=== PATIENT | male | born 1985 | race Caucasian/White ===

== ENCOUNTER 2018-03-20 11:05 | Emergency (ER) | payer MEDICARE ==
[2018-03-20 11:33] LABS: Appearance CLEAR (CLEAR); Bilirubin NEGATIVE (NEGATIVE); Blood NEGATIVE Ery/ul (0-5); Glucose NEGATIVE (NEGATIVE); Ketones NEGATIVE (NEGATIVE); Leukocyte Esterase NEGATIVE (NEGATIVE); Nitrite NEGATIVE (NEGATIVE); Protein,Urine Dip NEGATIVE (Negative); Specific Gravity 1.015 (1.005-1.025); Urobilinogen NORMAL mg/dL (0-1)
--- NOTE | 2018-03-20 11:33 | ERPHSYRPT ---
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) Exam Limitations: no limitations Patient Subjective Stated Complaint: to er c/o suicidal ideation Triage Nursing Assessment: Pt from [facility] was upset that he was not able to use his phone so he went into street to "jump in front of a car" no cars were in street at time pt was assisted back into home and told staff he was going to then "suffocate self with a pillow" pt arrives to ER [id number] denies any suicidal ideation at this time states he is sorry for doing what he did and states "I was just mad" Physician History: Pt and his central supply tech state, he had an argument about his diet last night. He became angry today and wanted jump into traffic to kill himself. He denies any injury or complaints. He arrived with ambulance, he is calm and cooperative. Allergies/Adverse Reactions: amoxicillin [From Amoxil] Allergy (Verified 03/20/18 11:30) Penicillins Allergy (Verified 03/20/18 11:30) Home Medications: Aripiprazole [Abilify] 20 mg PO HS 03/20/18 [History] Benztropine Mesylate 2 mg PO HS 03/20/18 [History] Escitalopram Oxalate 10 mg [Lexapro 10 MG] 20 mg PO DAILY 03/20/18 [History] Loratadine 10 mg [Claritin 10 mg] 10 mg PO DAILY 03/20/18 [History] Melatonin 5 mg PO HS 03/20/18 [History] Oxcarbazepine [Trileptal] 600 mg PO BID 03/20/18 [History] clonazePAM [Clonazepam] 0.5 mg PO BID 03/20/18 [History] Hx Influenza Vaccination/Date Given: Yes - Past Medical History Pertinent Past Medical History: Yes Neurological History: Epilepsy Psycho-Social History: Bipolar, Other Other Medical History: tramatic brain injury, insomnia, ptsd - Past Surgical History Past Surgical History: Yes Gastrointestinal: Appendectomy Other Surgical History: right neck lymph node removal, 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 - Social History Smoking Status: Never smoker Drug Use: none - Review of Systems Constitutional: No Symptoms Psychological: Anxiety, Depression, Suicidal Ideations, Emotional Lability, Mood Changes All Other Systems: Reviewed and Negative - Nursing Vital Signs Nursing Vital Signs: Initial Vital Signs Temperature 98.4 F 03/20/18 11:13 Pulse Rate 106 H 03/20/18 11:13 Respiratory Rate 18 03/20/18 11:13 Blood Pressure 162/96 03/20/18 11:13 O2 Sat by Pulse Oximetry 94 L 03/20/18 11:13 Pain Scale Pain Intensity 0 - Physical Exam General Appearance: no apparent distress Eyes, Ears, Nose, Throat Exam: normal ENT inspection Neck Exam: normal inspection, non-tender, supple Respiratory Exam: normal breath sounds, lungs clear, airway intact, No chest tenderness Cardiovascular Exam: regular rate/rhythm, normal heart sounds, normal peripheral pulses, No murmur Gastrointestinal/Abdominal Exam: soft, normal bowel sounds, No tenderness Extremities Exam: normal inspection Current Suicidality: has suicide plan Neurological Exam: alert, normal mood/affect Appearance: appropriate appearance, no memory impairment Behavior/Eye Contact/Speech: alert & cooperative, good eye contact, normal speech Skin Exam: normal color, warm, dry, No rash SpO2 Interpretation: normal SpO2: 94 Oxygen Delivery: Room Air - Course Nursing assessment & vital signs reviewed: Yes EKG Interpreted by Me: RATE (94/min), NORMAL AXIS, NORMAL INTERVALS, NORMAL ST-T Ordered Tests: Active Orders 24 hr Category Date Time Status Clean Catch Urine Specimen STAT Care 03/20/18 11:10 Active EKG-ER Only STAT Care 03/20/18 11:25 Active Psychiatric Evaluation STAT Care 03/20/18 13:26 Active ACETAMINOPHEN Stat Lab 03/20/18 11:35 Completed CBC W DIFF Stat Lab 03/20/18 11:35 Completed CMP Stat Lab 03/20/18 11:35 Completed ETHYL ALCOHOL Stat Lab 03/20/18 11:35 Completed SALICYLATE Stat Lab 03/20/18 11:35 Completed UA W/RFX UR CULTURE Stat Lab 03/20/18 11:26 Completed Urine Triage Profile Stat Lab 03/20/18 11:26 Completed Lab/Rad Data: Laboratory Result Diagrams 03/20/18 11:35 03/20/18 11:35 Laboratory Results 03/20/18 03/20/18 03/20/18 Range/Units 11:35 11:35 11:26 WBC 7.9 (4.0-10.5) K/mm3 RBC 5.14 (4.1-5.6) M/mm3 Hgb 15.4 (12.5-18.0) gm/dl Hct 43.3 (42-50) % MCV 84.2 (78-100) fl MCH 30.0 (26-32) pg MCHC 35.6 (32-36) g/dl RDW 12.7 (11.5-14.0) % Plt Count 210 (150-450) K/mm3 MPV 8.8 (6-9.5) fl Gran % 61.7 (36.0-66.0) % Eos # (Auto) 0.46 (0-0.5) Absolute Lymphs (auto) 1.77 (1.0-4.6) Absolute Monos (auto) 0.72 (0.0-1.3) Lymphocytes % 22.5 L (24.0-44.0) % Monocytes % 9.1 (0.0-12.0) % Eosinophils % 5.8 H (0.00-5.0) % Basophils % 0.9 (0.0-0.4) % Absolute Granulocytes 4.85 (1.4-6.9) Basophils # 0.07 (0-0.4) Sodium 140 (137-145) mmol/L Potassium 4.1 (3.5-5.1) mmol/L Chloride 105 (98-107) mmol/L Carbon Dioxide 25 (22-30) mmol/L Anion Gap 13.7 (5-15) MEQ/L BUN 14 (9-20) mg/dL Creatinine 0.73 (0.66-1.25) mg/dL Estimated GFR > 60.0 ML/MIN Glucose 136 H (74-106) mg/dL Calcium 9.4 (8.4-10.2) mg/dL Total Bilirubin 0.30 (0.2-1.3) mg/dL AST 29 (17-59) U/L ALT 24 (0-50) U/L Alkaline Phosphatase 73 (38-126) U/L Serum Total Protein 7.2 (6.3-8.2) g/dL Albumin 4.3 (3.5-5.0) g/dL Ur Collection Type Urine Color (YELLOW) Urine Appearance (CLEAR) Urine pH (5-6) Ur Specific [place] (1.005-1.025) Urine Protein (Negative) Urine Ketones (NEGATIVE) Urine Blood (0-5) Abimael/ul Urine Nitrite (NEGATIVE) Urine Bilirubin (NEGATIVE) Urine Urobilinogen (0-1) mg/dL Ur Leukocyte Esterase (NEGATIVE) Urine Culture Reflexed (NO) Urine Glucose (NEGATIVE) mg/dL Salicylates < 1.0 L (2-20) mg/dL Urine Opiates Level NEGATIVE (NEGATIVE) Ur Methadone NEGATIVE (NEGATIVE) Acetaminophen < 10 L (10-30) ug/ml Urine Barbiturates NEGATIVE (NEGATIVE) Ur Phencyclidine (PCP) NEGATIVE (NEGATIVE) Urine Amphetamine NEGATIVE (NEGATIVE) U Benzodiazepine Level NEGATIVE (NEGATIVE) Urine Cocaine NEGATIVE (NEGATIVE) Urine Marijuana (THC) NEGATIVE (NEGATIVE) Ethyl Alcohol < 10 (0-10) mg/dL Specimen Received 03/20/18 Range/Units 11:26 WBC (4.0-10.5) K/mm3 RBC (4.1-5.6) M/mm3 Hgb (12.5-18.0) gm/dl Hct (42-50) % MCV (78-100) fl MCH (26-32) pg MCHC (32-36) g/dl RDW (11.5-14.0) % Plt Count (150-450) K/mm3 MPV (6-9.5) fl Gran % (36.0-66.0) % Eos # (Auto) (0-0.5) Absolute Lymphs (auto) (1.0-4.6) Absolute Monos (auto) (0.0-1.3) Lymphocytes % (24.0-44.0) % Monocytes % (0.0-12.0) % Eosinophils % (0.00-5.0) % Basophils % (0.0-0.4) % Absolute Granulocytes (1.4-6.9) Basophils # (0-0.4) Sodium (137-145) mmol/L Potassium (3.5-5.1) mmol/L Chloride (98-107) mmol/L Carbon Dioxide (22-30) mmol/L Anion Gap (5-15) MEQ/L BUN (9-20) mg/dL Creatinine (0.66-1.25) mg/dL Estimated GFR ML/MIN Glucose (74-106) mg/dL Calcium (8.4-10.2) mg/dL Total Bilirubin (0.2-1.3) mg/dL AST (17-59) U/L ALT (0-50) U/L Alkaline Phosphatase (38-126) U/L Serum Total Protein (6.3-8.2) g/dL Albumin (3.5-5.0) g/dL Ur Collection Type VOID Urine Color YELLOW (YELLOW) Urine Appearance CLEAR (CLEAR) Urine pH 6.0 (5-6) Ur Specific [place] 1.015 (1.005-1.025) Urine Protein NEGATIVE (Negative) Urine Ketones NEGATIVE (NEGATIVE) Urine Blood NEGATIVE (0-5) Abimael/ul Urine Nitrite NEGATIVE (NEGATIVE) Urine Bilirubin NEGATIVE (NEGATIVE) Urine Urobilinogen NORMAL (0-1) mg/dL Ur Leukocyte Esterase NEGATIVE (NEGATIVE) Urine Culture Reflexed NO (NO) Urine Glucose NEGATIVE (NEGATIVE) mg/dL Salicylates (2-20) mg/dL Urine Opiates Level (NEGATIVE) Ur Methadone (NEGATIVE) Acetaminophen (10-30) ug/ml Urine Barbiturates (NEGATIVE) Ur Phencyclidine (PCP) (NEGATIVE) Urine Amphetamine (NEGATIVE) U Benzodiazepine Level (NEGATIVE) Urine Cocaine (NEGATIVE) Urine Marijuana (THC) (NEGATIVE) Ethyl Alcohol (0-10) mg/dL Specimen Received 03/20/18 1115 - Progress Progress: unchanged Progress Note: 03/20/18 13:14 Pt has been calm, stable, reviewed all his labs, he is medically clear for Psychiatric evaluation and treatment. 03/20/18 15:20 Jose called from [facility], Dr Michela Mckeon accepted patient to be transferred there for Psychiatric care. - Departure Time of Disposition: 13:14 Departure Disposition: Transfer Clinical Impression: Suicidal behavior with attempted self-injury Condition: Stable Critical Care Time: No Referrals: IQRA MILLS [Primary Care Provider] -
[2018-03-20 11:43] LABS: BASOPHIL % 0.9 % (0.0-0.4); Basophil (Absolute #) 0.07 (0-0.4); Eosinophil % 5.8 % (0.00-5.0); Eosinophil (Absolute #) 0.46 (0-0.5); Granulocyte Absolute (ANC) 4.85 (1.4-6.9); Granulocytes % 61.7 % (36.0-66.0); Hematocrit 43.3 % (42-50); Hemoglobin 15.4 gm/dl (12.5-18.0); Lymphocyte (Absolute #) 1.77 (1.0-4.6); Lymphocytes % 22.5 % (24.0-44.0); Mean Cell Volume 84.2 fl (78-100); Mean Corpuscular Hgb Concent. 35.6 g/dl (32-36); Mean Platelet Volume 8.8 fl (6-9.5); Monocyte (Absolute #) 0.72 (0.0-1.3); Monocytes % 9.1 % (0.0-12.0); Platelet Count 210 K/mm3 (150-450); Red Blood Count 5.14 M/mm3 (4.1-5.6); Red Cell Distribution Width 12.7 % (11.5-14.0); White Blood Count 7.9 K/mm3 (4.0-10.5)
[2018-03-20 11:46] LABS: Amphetamine,Urine NEGATIVE (NEGATIVE); Barbiturate,Urine NEGATIVE (NEGATIVE); Benzodiazepine,Urine NEGATIVE (NEGATIVE); Cocaine,Urine NEGATIVE (NEGATIVE); Methadone,Urine NEGATIVE (NEGATIVE); Opiate,Urine NEGATIVE (NEGATIVE); PCP,Urine NEGATIVE (NEGATIVE); THC,Urine NEGATIVE (NEGATIVE)
[2018-03-20 12:00] LABS: ALBUMIN 4.3 g/dL (3.5-5.0); ALKALINE PHOSPHATASE 73 U/L (38-126); ANION GAP 13.7 MEQ/L (5-15); BLOOD UREA NITROGEN 14 mg/dL (9-20); CHLORIDE 105 mmol/L (98-107); Calcium 9.4 mg/dL (8.4-10.2); Carbon Dioxide 25 mmol/L (22-30); Creatinine 1 0.73 mg/dL (0.66-1.25); Glucose 136 mg/dL (74-106); Potassium 4.1 mmol/L (3.5-5.1); SGOT/AST 29 U/L (17-59); SGPT/ALT 24 U/L (0-50); SODIUM 140 mmol/L (137-145); Total Protein 7.2 g/dL (6.3-8.2)
[2018-03-20 12:03] LABS: ACETAMINOPHEN < 10 ug/ml (10-30); ETHYL ALCOHOL < 10 mg/dL (0-10); SALICYLATE < 1.0 mg/dL (2-20)
[2018-03-20 15:06] VITALS: BP 117/75; PULSE 77
[2018-03-20 15:22] VITALS: O2SAT 94
== END 2018-03-20 16:18 | disposition short-term general hospital (02) ==
LOC: ED 11:05
DX: T14.91XA Suicide attempt, initial encounter (principal); Z79.899 Other long term (current) drug therapy; F41.9 Anxiety disorder, unspecified
CPT/HCPCS: 36415; 80053; 80307; 81002; 85025; 90791; 93005; 99285; G0481; 99284; Q3014; G0480

== ENCOUNTER 2018-04-07 21:30 | Emergency (ER) | payer MEDICARE ==
[2018-04-07 22:42] VITALS: PULSE 71
--- NOTE | 2018-04-07 22:57 | ERPHSYRPT ---
- History of Present Illness Time Seen by Provider: 04/07/18 22:53 Source: patient Exam Limitations: no limitations Patient Subjective Stated Complaint: foot pain Triage Nursing Assessment: pt is ambulatory. pt is alert and oriented. pt has mental disabilities and behavioral issues. pt states that his pain is a 10/10. no sensation loss, pedal pulses equal. Physician History: The patient is a 32-year-old male with a caregiver from a long term in which the patient lives. The patient complains to me of left foot pain for 2 or 3 days. He denies trauma to the area. He says when he was about 23 he had a stress fracture in that foot. The caregiver states that he refused to take Tylenol or put ice on it. He does not discuss any other problems with me. Method of Injury: unknown Occurred: days ago (few) Quality: constant Severity of Pain-Max: mild Severity of Pain-Current: mild Lower Extremities Pain: foot: left Modifying Factors: Improves With: nothing Associated Symptoms: none Allergies/Adverse Reactions: amoxicillin [From Amoxil] Allergy (Verified 03/20/18 11:30) Penicillins Allergy (Verified 03/20/18 11:30) Home Medications: Aripiprazole [Abilify] 20 mg PO HS 03/20/18 [History] Benztropine Mesylate 2 mg PO HS 03/20/18 [History] Escitalopram Oxalate 10 mg [Lexapro 10 MG] 20 mg PO DAILY 03/20/18 [History] Loratadine 10 mg [Claritin 10 mg] 10 mg PO DAILY 03/20/18 [History] Melatonin 5 mg PO HS 03/20/18 [History] Oxcarbazepine [Trileptal] 600 mg PO BID 03/20/18 [History] clonazePAM [Clonazepam] 0.5 mg PO BID 03/20/18 [History] Hx Influenza Vaccination/Date Given: Yes Immunizations Up to Date: Yes - Review of Systems Constitutional: No Fever, No Chills Eyes: No Symptoms Ears, Nose, & Throat: No Symptoms Respiratory: No Cough, No Dyspnea Cardiac: No Chest Pain, No Edema, No Syncope Abdominal/Gastrointestinal: No Abdominal Pain, No Nausea, No Vomiting, No Diarrhea Genitourinary Symptoms: No Dysuria Musculoskeletal: Other (left foot pain) Skin: No Rash Neurological: No Dizziness, No Focal Weakness, No Sensory Changes Psychological: No Symptoms Endocrine: No Symptoms Hematologic/Lymphatic: No Symptoms Immunological/Allergic: No Symptoms All Other Systems: Reviewed and Negative - Past Medical History Pertinent Past Medical History: Yes Neurological History: Epilepsy ENT History: No Pertinent History Cardiac History: No Pertinent History Respiratory History: No Pertinent History Endocrine Medical History: No Pertinent History Musculoskeletal History: Other GI Medical History: No Pertinent History History: No Pertinent History Psycho-Social History: Bipolar, Other Male Reproductive Disorders: No Pertinent History Other Medical History: tramatic brain injury, insomnia, ptsd, left pointer finger amputation. 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 - Social History Smoking Status: Never smoker Drug Use: none - Nursing Vital Signs Nursing Vital Signs: Initial Vital Signs Temperature 98.3 F 04/07/18 21:34 Pulse Rate 73 04/07/18 21:34 Respiratory Rate 16 04/07/18 21:34 Blood Pressure 149/97 04/07/18 21:34 O2 Sat by Pulse Oximetry 94 L 04/07/18 21:34 Pain Scale Pain Intensity 10 - Physical Exam General Appearance: alert Eyes, Ears, Nose, Throat Exam: moist mucous membranes Neck Exam: non-tender, supple Cardiovascular/Respiratory Exam: chest non-tender, normal breath sounds, regular rate/rhythm, no respiratory distress Gastrointestinal/Abdominal Exam: non-tender, guarding Back Exam: normal inspection, No vertebral tenderness Hips Exam: bilateral: normal inspection Legs Exam: bilateral leg: normal inspection Knees Exam: bilateral knee: normal inspection Ankle Exam: bilateral ankle: normal inspection Foot Exam: right foot: normal inspection, left foot: soft tissue tenderness ( mid foot) Neuro/Tendon Exam: normal sensation, normal motor functions Mental Status Exam: alert, oriented x 3, cooperative Skin Exam: normal color, warm, dry SpO2 Interpretation: normal SpO2: 92 Oxygen Delivery: Room Air - Radiology Exams Left Foot X-ray Interpretation: Interpreted by me, Negative Ordered Tests: Active Orders 24 hr Category Date Time Status FOOT (MINIMUM 3 VIEWS) Stat Exams 04/07/18 22:58 Ordered - Departure Time of Disposition: 23:21 Departure Disposition: Home Clinical Impression: Foot pain Condition: Stable Critical Care Time: No Referrals: IQRA MILLS [Primary Care Provider] - Additional Instructions: You have left foot pain. The x-ray was completely normal. You were given Toradol 60 mg by IM in the ER. Take Tylenol and ibuprofen as needed tomorrow. Follow-up next week if the foot is still hurting you.
[2018-04-07] MEDS ORDERED: TORAdol 30 mg Injection IM ONE (23:21)
[2018-04-07] MEDS ORDERED: TORAdol 30 mg Injection ONE (23:35)
[2018-04-07 23:43] VITALS: BP 131/70; O2SAT 90
--- NOTE | 2018-04-08 08:50 | XRAY ---
Indication: Foot pain. Comparison: None 3 nonweightbearing views of the left foot demonstrates tiny heel spur. No other bony, articular, or soft tissue abnormalities.
== END 2018-04-07 23:48 | disposition home or self-care (01) ==
LOC: ED 21:30
DX: M79.672 Pain in left foot (principal); Z79.899 Other long term (current) drug therapy
CPT/HCPCS: 73630; 96372; 99282; 99284; J1885

== ENCOUNTER 2018-06-07 21:30 | Emergency (ER) | payer MEDICARE ==
--- NOTE | 2018-06-07 22:04 | ERPHSYRPT ---
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 No laceration, denies LOC or any other injuries. No sx other than pain. no distress at this time. pt is from longterm. Triage Nursing Assessment: see above Physician History: The patient is a 32-year-old male with his caregiver from the longterm complaining that it came minutes before he arrived here, he opened a cabinet door and a metal shelf fell and hit him on the top of the head. He did not lose consciousness. He did not get cut. His head is slightly tender. It is the policy of the caregivers organization to have him evaluated for any accident. Occurred: just prior to arrival Severity: mild Head Injury Location: parietal Method of Injury: direct blow Loss of Consciousness: no loss of consciousness Associated Symptoms: denies symptoms Allergies/Adverse Reactions: amoxicillin [From Amoxil] Allergy (Verified 06/07/18 21:49) Penicillins Allergy (Verified 06/07/18 21:49) Home Medications: Aripiprazole [Abilify] 20 mg PO HS 03/20/18 [History] Benztropine Mesylate 2 mg PO HS 03/20/18 [History] Escitalopram Oxalate 10 mg [Lexapro 10 MG] 20 mg PO DAILY 03/20/18 [History] Loratadine 10 mg [Claritin 10 mg] 10 mg PO DAILY 03/20/18 [History] Melatonin 5 mg PO HS 03/20/18 [History] Oxcarbazepine [Trileptal] 600 mg PO BID 03/20/18 [History] clonazePAM [Clonazepam] 0.5 mg PO BID 03/20/18 [History] Hx Influenza Vaccination/Date Given: Yes - Review of Systems Constitutional: No Fever, No Chills Eyes: No Symptoms Ears, Nose, & Throat: No Symptoms Respiratory: No Cough, No Dyspnea Cardiac: No Chest Pain, No Edema, No Syncope Abdominal/Gastrointestinal: No Abdominal Pain, No Nausea, No Vomiting, No Diarrhea Genitourinary Symptoms: No Dysuria Musculoskeletal: No Back Pain, No Neck Pain Skin: No Rash Neurological: Headache Psychological: No Symptoms Endocrine: No Symptoms Hematologic/Lymphatic: No Symptoms Immunological/Allergic: No Symptoms All Other Systems: Reviewed and Negative - Past Medical History Pertinent Past Medical History: Yes Neurological History: Epilepsy ENT History: No Pertinent History Cardiac History: No Pertinent History Respiratory History: No Pertinent History Endocrine Medical History: No Pertinent History Musculoskeletal History: Other GI Medical History: No Pertinent History History: No Pertinent History Psycho-Social History: Bipolar, Other Male Reproductive Disorders: No Pertinent History Other Medical History: tramatic brain injury, insomnia, ptsd, left pointer finger amputation. 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 - Social History Smoking Status: Former smoker Exposure to second hand smoke: No Drug Use: none Patient Lives Alone: No - Nursing Vital Signs Nursing Vital Signs: Initial Vital Signs Temperature 98.7 F 06/07/18 21:40 Pulse Rate 87 06/07/18 21:40 Respiratory Rate 18 06/07/18 21:40 Blood Pressure 140/88 06/07/18 21:40 O2 Sat by Pulse Oximetry 97 06/07/18 21:40 Pain Scale Pain Intensity 2 - [place] Coma Score Best Eye Response ([place]): (4) open spontaneously Best Verbal Response ([place]): (5) oriented Best Motor Response ([place]): (6) obeys commands [place] Total: 15 - Physical Exam General Appearance: no apparent distress, alert Head Injury: no evidence of injury Eye Exam: bilateral eye: normal inspection ENT Exam: airway nml Neck Exam: supple Cardiovascular/Respiratory Exam: chest non-tender, normal breath sounds, regular rate/rhythm Gastrointestinal/Abdominal Exam: soft, non tender, no distention Rectal Exam: not done Back Exam: normal inspection, No vertebral tenderness Extremity Exam: non-tender, normal range of motion, normal inspection Mental Status Exam: alert, oriented x 3, 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 Take Tylenol as needed. You have been released to return to work tomorrow.
[2018-06-07 22:58] VITALS: BP 140/88; PULSE 87; O2SAT 97
== END 2018-06-07 22:07 | disposition home or self-care (01) ==
LOC: ED 21:30
DX: S00.03XA Contusion of scalp, initial encounter (principal); W20.8XXA Other cause of strike by thrown, projected or falling object, initial encounter; Y92.538 Other ambulatory health services establishments as the place of occurrence of the external cause; G40.909 Epilepsy, unspecified, not intractable, without status epilepticus; F31.9 Bipolar disorder, unspecified; F43.10 Post-traumatic stress disorder, unspecified
CPT/HCPCS: 99283

== ENCOUNTER 2018-07-13 21:47 | Emergency (ER) | payer MEDICARE ==
[2018-07-13 22:40] VITALS: BP 115/81; PULSE 74; O2SAT 93
[2018-07-13] MEDS ORDERED: Adacel Vial IM ONE ×2 (22:41→22:55)
--- NOTE | 2018-07-13 22:47 | ERPHSYRPT ---
- History of Present Illness Time Seen by Provider: 07/13/18 22:36 Source: patient Exam Limitations: no limitations Patient Subjective Stated Complaint: stepped on thumb tack, needs tetanus shot Triage Nursing Assessment: Pt stepped on a thumb tack today and is here for a tetanus shot Physician History: This is a 32-year-old white male [facility]. Patient has a history of bipolar TBI insomnia PTSD. Patient arrives with complaint of stepped on a thumbtack at 9:00 this evening right foot overlying the right first metatarsophalangeal joint. Patient states she has no pain at this time. Patient apparently was sent by referring nurse for tetanus shot. Past medical history includes bipolar, TBI, insomnia, PTSD, left pointer finger amputation. Past surgical history includes appendectomy, right neck lymph node removed, left second digit amputation.. Method of Injury: other (stepped on at tack) Occurred: just prior to arrival Quality: other (Pain resolved) Severity of Pain-Max: moderate Severity of Pain-Current: none Lower Extremities Pain: foot: right Modifying Factors: Improves With: nothing Associated Symptoms: none Allergies/Adverse Reactions: amoxicillin [From Amoxil] Allergy (Verified 07/13/18 22:32) Penicillins Allergy (Verified 07/13/18 22:32) Home Medications: Aripiprazole [Abilify] 15 mg PO HS 03/20/18 [History] Benztropine Mesylate 2 mg PO HS 03/20/18 [History] Escitalopram Oxalate 10 mg [Lexapro 10 MG] 20 mg PO DAILY 03/20/18 [History] Loratadine 10 mg [Claritin 10 mg] 10 mg PO DAILY 03/20/18 [History] Melatonin 5 mg PO HS 03/20/18 [History] Oxcarbazepine [Trileptal] 600 mg PO BID 03/20/18 [History] clonazePAM [Clonazepam] 0.5 mg PO BID 03/20/18 [History] Hx Influenza Vaccination/Date Given: Yes - Review of Systems Constitutional: No Fever, No Chills Eyes: No Symptoms Ears, Nose, & Throat: No Symptoms Respiratory: No Cough, No Dyspnea Cardiac: No Chest Pain, No Edema, No Syncope Abdominal/Gastrointestinal: No Abdominal Pain, No Nausea, No Vomiting, No Diarrhea Genitourinary Symptoms: No Dysuria Musculoskeletal: Other (Pain plantar surface right foot) Skin: Other (Puncture wound right foot plantar surface) Neurological: No Dizziness, No Focal Weakness, No Sensory Changes Psychological: No Symptoms Endocrine: No Symptoms All Other Systems: Reviewed and Negative - Past Medical History Pertinent Past Medical History: Yes Neurological History: Epilepsy ENT History: No Pertinent History Cardiac History: No Pertinent History Respiratory History: No Pertinent History Endocrine Medical History: No Pertinent History Musculoskeletal History: Other GI Medical History: No Pertinent History History: No Pertinent History Psycho-Social History: Bipolar, Other Male Reproductive Disorders: No Pertinent History Other Medical History: tramatic brain injury, insomnia, ptsd, left pointer finger amputation. 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 - Social History Smoking Status: Former smoker Exposure to second hand smoke: No Drug Use: none Patient Lives Alone: No - Nursing Vital Signs Nursing Vital Signs: Initial Vital Signs Temperature 98.2 F 07/13/18 22:28 Pulse Rate 74 07/13/18 22:28 Blood Pressure 115/81 07/13/18 22:28 O2 Sat by Pulse Oximetry 93 L 07/13/18 22:28 Pain Scale Pain Intensity 0 - Physical Exam General Appearance: alert Eyes, Ears, Nose, Throat Exam: moist mucous membranes Neck Exam: non-tender, supple Cardiovascular/Respiratory Exam: chest non-tender, normal breath sounds, regular rate/rhythm, no respiratory distress Gastrointestinal/Abdominal Exam: non-tender, guarding Hips Exam: bilateral: non-tender, normal inspection, normal range of motion, no evidence of injury Legs Exam: bilateral leg: non-tender, normal inspection, normal range of motion , no evidence of injury Knees Exam: bilateral knee: non-tender, normal inspection, normal range of motion, no evidence of injury Ankle Exam: bilateral ankle: non-tender, normal inspection, normal range of motion, no evidence of injury Foot Exam: right foot: other (Barely visible puncture wound plantar surface right foot overlying first MT P joint), left foot: no evidence of injury, bilateral foot: non-tender, normal inspection, normal range of motion Neuro/Tendon Exam: normal sensation, normal motor functions Mental Status Exam: alert, oriented x 3, cooperative Skin Exam: normal color, warm, dry SpO2 Interpretation: normal (93%) SpO2: 93 Oxygen Delivery: Room Air - Course Nursing assessment & vital signs reviewed: Yes Ordered Tests: Active Orders 24 hr Category Date Time Status Wound Care STAT Care 07/13/18 22:41 Active Medication Summary Discontinued Medications Generic Name Dose Route Start Last Admin Trade Name Freq PRN Reason Stop Dose Admin Diphtheria/Tetanus/Acell Pertussis 0.5 ml 07/13/18 22:41 Adacel Vial IM 07/13/18 22:42 .ONCE ONE - Progress Progress: improved Progress Note: 07/13/18 22:46 This is a 32-year-old male resident of [facility]. Brought by one of the staff with complaints of a puncture wound of the patient' s right foot after stepping on a thumbtack. Apparently the nurse that was contacted by [facility] recommended coming into the emergency room and getting a tetanus shot. Patient is in no acute distress he has a barely visible puncture wound on the right foot plantar surface overlying the right MTP joint. He is in no pain. Will have nurse clean the area give patient DTaP injection. - Departure Time of Disposition: 22:47 Departure Disposition: Home Clinical Impression: Puncture wound of right foot Qualifiers: Encounter type: initial encounter Qualified Code(s): S91.331A - Puncture wound without foreign body, right foot, initial encounter Condition: Fair Critical Care Time: No Referrals: IQRA MILLS [Primary Care Provider] - Additional Instructions: Return home. Follow-up with your family doctor problems. Return for acute distress or for severe symptoms.
== END 2018-07-13 23:16 | disposition home or self-care (01) ==
LOC: ED 21:47
DX: S91.331A Puncture wound without foreign body, right foot, initial encounter (principal); W22.8XXA Striking against or struck by other objects, initial encounter; Y92.009 Unspecified place in unspecified non-institutional (private) residence as the place of occurrence of the external cause; Z79.899 Other long term (current) drug therapy
CPT/HCPCS: 90471; 90715; 96372; 99284

== ENCOUNTER 2019-04-09 21:24 | Emergency (ER) | payer MEDICARE ==
--- NOTE | 2019-04-09 22:50 | ERPHSYRPT ---
- History of Present Illness Time Seen by Provider: 04/09/19 22:42 Source: patient Exam Limitations: no limitations Patient Subjective Stated Complaint: Behavioral problems/suicidal ideation Triage Nursing Assessment: Patient brought into ED per [facility] staff for behavioral problems and suicidal ideation. Patient alert and oriented X 3. patient calm and cooperative. Patient states he does have a plan, which would be to choke himself. Patient states he did slap the side of his face with an open hand and punch himself with a closed fist in the forehead. Patient resides in a half-way and states she doesn't like it there and feels homicidal also. patient states he would want to hurt one person named "Luis Carlos" in the house. Patient also states his psych doctor is Dr. Moeller. Patient has hx of TBI unknown date. Physician History: 33-year-old white male who [facility] at [facility] brought here with complaint of suicidal and homicidal ideation. Patient states he is not happy with his and he wishes to kill himself he states he would choke himself with possible. He also told the nurse that he wishes to harm another individual at the [facility]. Past medical history includes traumatic brain injury, insomnia, posttraumatic stress disorder, bipolar, left index finger amputation Past surgical history includes appendectomy right neck lymph node removed Social history former smoker Timing/Duration: other (will not specify for how long) Severity: moderate Modifying Factors: Improves With: nothing Associated Symptoms: No nausea, No vomiting, No abdominal pain, No shortness of breath, No heartburn, No diaphoresis, No cough, No chills, No chest pain, No fever, No headaches, No loss of appetite, No malaise, No rash, No syncope, No seizure, No weakness Allergies/Adverse Reactions: amoxicillin [From Amoxil] Allergy (Verified 04/09/19 22:01) Penicillins Allergy (Verified 04/09/19 22:01) Home Medications: Benztropine Mesylate 1 mg PO HS 03/20/18 [History] Escitalopram Oxalate 10 mg [Lexapro 10 MG] 20 mg PO DAILY 03/20/18 [History] clonazePAM [Clonazepam] 0.5 mg PO BID 03/20/18 [History] Divalproex Sodium 500 mg PO BID 04/09/19 [History] Divalproex Sodium [Depakote] 250 mg PO BID 04/09/19 [History] Hx Influenza Vaccination/Date Given: Yes Hx Pneumococcal Vaccination/Date Given: No Immunizations Up to Date: Yes - Review of Systems Constitutional: No Fever, No Chills Eyes: No Symptoms Ears, Nose, & Throat: No Symptoms Respiratory: No Cough, No Dyspnea Cardiac: No Chest Pain, No Edema, No Syncope Abdominal/Gastrointestinal: No Abdominal Pain, No Nausea, No Vomiting, No Diarrhea Genitourinary Symptoms: No Dysuria Musculoskeletal: No Back Pain, No Neck Pain Skin: No Rash Neurological: No Dizziness, No Focal Weakness, No Sensory Changes Psychological: Suicidal Ideations, Homicidal Ideations Endocrine: No Symptoms All Other Systems: Reviewed and Negative - Past Medical History Pertinent Past Medical History: Yes Neurological History: Epilepsy ENT History: No Pertinent History Cardiac History: No Pertinent History Respiratory History: No Pertinent History Endocrine Medical History: No Pertinent History Musculoskeletal History: Other GI Medical History: No Pertinent History History: No Pertinent History Psycho-Social History: Bipolar, Other Male Reproductive Disorders: No Pertinent History Other Medical History: tramatic brain injury, insomnia, ptsd, left pointer finger amputation. 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 - Social History Smoking Status: Never smoker Exposure to second hand smoke: No Drug Use: none Patient Lives Alone: No (patient in half-way) - Nursing Vital Signs Nursing Vital Signs: Initial Vital Signs Temperature 98.9 F 04/09/19 22:03 Pulse Rate 105 H 04/09/19 22:03 Respiratory Rate 18 04/09/19 22:03 Blood Pressure 141/81 04/09/19 22:03 O2 Sat by Pulse Oximetry 94 L 04/09/19 22:03 Pain Scale Pain Intensity 0 - Physical Exam General Appearance: no apparent distress, alert Eye Exam: PERRL/EOMI, eyes nml inspection Ears, Nose, Throat Exam: normal ENT inspection, TMs normal, pharynx normal, moist mucous membranes Neck Exam: normal inspection, non-tender, supple, full range of motion Respiratory Exam: normal breath sounds, lungs clear, No respiratory distress Cardiovascular Exam: regular rate/rhythm, normal heart sounds, normal peripheral pulses, capillary refill <2 sec Gastrointestinal/Abdomen Exam: soft, normal bowel sounds, No tenderness, No mass Back Exam: normal inspection, normal range of motion, No CVA tenderness, No vertebral tenderness Extremity Exam: normal inspection Neurologic Exam: alert, oriented x 3, cooperative, 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, normal mood/affect, nml cerebellar function, nml station & gait, sensation nml, No motor deficits Skin Exam: normal color, warm, dry, No rash Lymphatic Exam: No adenopathy SpO2 Interpretation: normal (94%) SpO2: 94 - Course Nursing assessment & vital signs reviewed: Yes EKG Interpreted by Me: RATE (98 bpm), Sinus Rhythm, NORMAL AXIS, Other (EKG: Sinus rhythm, 98 beats per minute, normal axis, no acute ST or T wave changes, normal EKG) Ordered Tests: Active Orders 24 hr Category Date Time Status EKG-ER Only STAT Care 04/09/19 22:40 Active ACETAMINOPHEN Stat Lab 04/09/19 22:53 Completed CBC W DIFF Stat Lab 04/09/19 22:53 Completed CMP Stat Lab 04/09/19 22:53 Completed ETHYL ALCOHOL Stat Lab 04/09/19 22:53 Completed SALICYLATE Stat Lab 04/09/19 22:53 Completed UA W/RFX UR CULTURE Stat Lab 04/09/19 22:53 Completed Urine Triage Profile Stat Lab 04/09/19 22:53 Completed Lab/Rad Data: Laboratory Result Diagrams 04/09/19 22:53 04/09/19 22:53 Laboratory Results 04/09/19 04/09/19 04/09/19 Range/Units 22:53 22:53 22:53 WBC (4.0-10.5) K/mm3 RBC (4.1-5.6) M/mm3 Hgb (12.5-18.0) gm/dl Hct (42-50) % MCV (78-100) fl MCH (26-32) pg MCHC (32-36) g/dl RDW (11.5-14.0) % Plt Count (150-450) K/mm3 MPV (6-9.5) fl Gran % (36.0-66.0) % Eos # (Auto) (0-0.5) Absolute Lymphs (auto) (1.0-4.6) Absolute Monos (auto) (0.0-1.3) Lymphocytes % (24.0-44.0) % Monocytes % (0.0-12.0) % Eosinophils % (0.00-5.0) % Basophils % (0.0-0.4) % Absolute Granulocytes (1.4-6.9) Basophils # (0-0.4) Sodium (137-145) mmol/L Potassium (3.5-5.1) mmol/L Chloride (98-107) mmol/L Carbon Dioxide (22-30) mmol/L Anion Gap (5-15) MEQ/L BUN (9-20) mg/dL Creatinine (0.66-1.25) mg/dL Estimated GFR ML/MIN Glucose (74-106) mg/dL Calcium (8.4-10.2) mg/dL Total Bilirubin (0.2-1.3) mg/dL AST (17-59) U/L ALT (0-50) U/L Alkaline Phosphatase (38-126) U/L Serum Total Protein (6.3-8.2) g/dL Albumin (3.5-5.0) g/dL Urine Color YELLOW (YELLOW) Urine Appearance CLEAR (CLEAR) Urine pH 7.0 (5-6) Ur Specific [place] 1.016 (1.005-1.025) Urine Protein NEGATIVE (Negative) Urine Ketones TRACE (NEGATIVE) Urine Blood NEGATIVE (0-5) Abimael/ul Urine Nitrite NEGATIVE (NEGATIVE) Urine Bilirubin NEGATIVE (NEGATIVE) Urine Urobilinogen NEGATIVE (0-1) mg/dL Ur Leukocyte Esterase NEGATIVE (NEGATIVE) Urine WBC (Auto) NONE (0-5) /HPF Urine RBC (Auto) NONE (0-2) /HPF U Epithel Cells (Auto) NONE (FEW) /HPF Urine Bacteria (Auto) NONE (NEGATIVE) /HPF Urine Culture Reflexed NO (NO) Urine Glucose NEGATIVE (NEGATIVE) mg/dL Salicylates (2-20) mg/dL Urine Opiates Level NEGATIVE (NEGATIVE) Ur Methadone NEGATIVE (NEGATIVE) Acetaminophen (10-30) ug/ml Urine Barbiturates NEGATIVE (NEGATIVE) Valproic Acid 86.9 (50-100) ug/mL Ur Phencyclidine (PCP) NEGATIVE (NEGATIVE) Urine Amphetamine NEGATIVE (NEGATIVE) U Benzodiazepine Level NEGATIVE (NEGATIVE) Urine Cocaine NEGATIVE (NEGATIVE) Urine Marijuana (THC) NEGATIVE (NEGATIVE) Ethyl Alcohol (0-10) mg/dL 04/09/19 04/09/19 Range/Units 22:53 22:53 WBC 7.9 (4.0-10.5) K/mm3 RBC 4.88 (4.1-5.6) M/mm3 Hgb 14.4 (12.5-18.0) gm/dl Hct 42.2 (42-50) % MCV 86.5 (78-100) fl MCH 29.5 (26-32) pg MCHC 34.1 (32-36) g/dl RDW 13.5 (11.5-14.0) % Plt Count 168 (150-450) K/mm3 MPV 9.7 H (6-9.5) fl Gran % 56.5 (36.0-66.0) % Eos # (Auto) 0.27 (0-0.5) Absolute Lymphs (auto) 2.28 (1.0-4.6) Absolute Monos (auto) 0.87 (0.0-1.3) Lymphocytes % 28.8 (24.0-44.0) % Monocytes % 11.0 (0.0-12.0) % Eosinophils % 3.4 (0.00-5.0) % Basophils % 0.3 (0.0-0.4) % Absolute Granulocytes 4.48 (1.4-6.9) Basophils # 0.02 (0-0.4) Sodium 144 (137-145) mmol/L Potassium 4.0 (3.5-5.1) mmol/L Chloride 108 H (98-107) mmol/L Carbon Dioxide 26 (22-30) mmol/L Anion Gap 14.1 (5-15) MEQ/L BUN 14 (9-20) mg/dL Creatinine 0.85 (0.66-1.25) mg/dL Estimated GFR > 60.0 ML/MIN Glucose 94 (74-106) mg/dL Calcium 9.5 (8.4-10.2) mg/dL Total Bilirubin 0.30 (0.2-1.3) mg/dL AST 36 (17-59) U/L ALT 46 (0-50) U/L Alkaline Phosphatase 51 (38-126) U/L Serum Total Protein 6.9 (6.3-8.2) g/dL Albumin 3.9 (3.5-5.0) g/dL Urine Color (YELLOW) Urine Appearance (CLEAR) Urine pH (5-6) Ur Specific [place] (1.005-1.025) Urine Protein (Negative) Urine Ketones (NEGATIVE) Urine Blood (0-5) Abimael/ul Urine Nitrite (NEGATIVE) Urine Bilirubin (NEGATIVE) Urine Urobilinogen (0-1) mg/dL Ur Leukocyte Esterase (NEGATIVE) Urine WBC (Auto) (0-5) /HPF Urine RBC (Auto) (0-2) /HPF U Epithel Cells (Auto) (FEW) /HPF Urine Bacteria (Auto) (NEGATIVE) /HPF Urine Culture Reflexed (NO) Urine Glucose (NEGATIVE) mg/dL Salicylates < 1.0 L (2-20) mg/dL Urine Opiates Level (NEGATIVE) Ur Methadone (NEGATIVE) Acetaminophen < 10 L (10-30) ug/ml Urine Barbiturates (NEGATIVE) Valproic Acid (50-100) ug/mL Ur Phencyclidine (PCP) (NEGATIVE) Urine Amphetamine (NEGATIVE) U Benzodiazepine Level (NEGATIVE) Urine Cocaine (NEGATIVE) Urine Marijuana (THC) (NEGATIVE) Ethyl Alcohol < 10 (0-10) mg/dL - Progress Progress: improved Progress Note: 04/10/19 04:24 Patient's labs essentially normal. Patient accepted for transfer to [facility]. - Departure Departure Disposition: Transfer ([facility]) Clinical Impression: Suicidal ideation Condition: Fair Critical Care Time: No Referrals: IQRA MILLS [Primary Care Provider] -
[2019-04-09 22:55] LABS: BASOPHIL % 0.3 % (0.0-0.4); Basophil (Absolute #) 0.02 (0-0.4); Eosinophil % 3.4 % (0.00-5.0); Eosinophil (Absolute #) 0.27 (0-0.5); Granulocyte Absolute (ANC) 4.48 (1.4-6.9); Granulocytes % 56.5 % (36.0-66.0); Hematocrit 42.2 % (42-50); Hemoglobin 14.4 gm/dl (12.5-18.0); Lymphocyte (Absolute #) 2.28 (1.0-4.6); Lymphocytes % 28.8 % (24.0-44.0); Mean Cell Volume 86.5 fl (78-100); Mean Corpuscular Hemoglobin 29.5 pg (26-32); Mean Corpuscular Hgb Concent. 34.1 g/dl (32-36); Mean Platelet Volume 9.7 fl (6-9.5); Monocyte (Absolute #) 0.87 (0.0-1.3); Platelet Count 168 K/mm3 (150-450); Red Blood Count 4.88 M/mm3 (4.1-5.6); Red Cell Distribution Width 13.5 % (11.5-14.0); White Blood Count 7.9 K/mm3 (4.0-10.5)
[2019-04-09 23:07] LABS: ALBUMIN 3.9 g/dL (3.5-5.0); ALKALINE PHOSPHATASE 51 U/L (38-126); ANION GAP 14.1 MEQ/L (5-15); BLOOD UREA NITROGEN 14 mg/dL (9-20); CHLORIDE 108 mmol/L (98-107); Calcium 9.5 mg/dL (8.4-10.2); Carbon Dioxide 26 mmol/L (22-30); Creatinine 1 0.85 mg/dL (0.66-1.25); Glucose 94 mg/dL (74-106); SGOT/AST 36 U/L (17-59); SGPT/ALT 46 U/L (0-50); SODIUM 144 mmol/L (137-145); Total Protein 6.9 g/dL (6.3-8.2)
[2019-04-09 23:08] LABS: ACETAMINOPHEN < 10 ug/ml (10-30); ETHYL ALCOHOL < 10 mg/dL (0-10); SALICYLATE < 1.0 mg/dL (2-20)
[2019-04-09 23:09] LABS: Appearance CLEAR (CLEAR); Bilirubin NEGATIVE (NEGATIVE); Blood NEGATIVE Ery/ul (0-5); Glucose NEGATIVE (NEGATIVE); Ketones TRACE (NEGATIVE); Leukocyte Esterase NEGATIVE (NEGATIVE); Nitrite NEGATIVE (NEGATIVE); Protein,Urine Dip NEGATIVE (Negative); Specific Gravity 1.016 (1.005-1.025); Urobilinogen NEGATIVE mg/dL (0-1)
[2019-04-09 23:20] LABS: Amphetamine,Urine NEGATIVE (NEGATIVE); Barbiturate,Urine NEGATIVE (NEGATIVE); Benzodiazepine,Urine NEGATIVE (NEGATIVE); Cocaine,Urine NEGATIVE (NEGATIVE); Methadone,Urine NEGATIVE (NEGATIVE); Opiate,Urine NEGATIVE (NEGATIVE); PCP,Urine NEGATIVE (NEGATIVE); THC,Urine NEGATIVE (NEGATIVE)
[2019-04-10 04:34] VITALS: BP 137/85; PULSE 96; O2SAT 96
== END 2019-04-10 04:30 | disposition short-term general hospital (02) ==
LOC: ED 21:24
DX: R45.851 Suicidal ideations (principal); Z79.899 Other long term (current) drug therapy
CPT/HCPCS: 36415; 80053; 80164; 80307; 81001; 85025; 93005; 99285; G0480; G0481

== ENCOUNTER 2020-05-28 07:41 | Emergency (ER) | payer MEDICARE ==
--- NOTE | 2020-05-28 08:18 | ERPHSYRPT ---
- History of Present Illness Time Seen by Provider: 05/28/20 08:00 Historian: patient, other Exam Limitations: no limitations Patient Subjective Stated Complaint: PT states "My belly hurts.". Pt caregiver states "His belly started to hurt on wednesday and he keeps holding his left belly." Triage Nursing Assessment: PT presented alert and oriented X 3, skin pwd Pt ambulates with an upright steady gait. Pt stating over and over again that his abdomen hurts. Pt abdomen is soft, tender in the upper and lower left quadrant. Physician History: 34 years old male with history of bipolar disorder, anxiety, depression, PTSD r esident of assisted living presented in the ER with caregiver for left side abdominal pain for the last 2 days with progressive worsening. Patient reports intermittent moderate to severe intensity, sharp in nature, nonradiating without any known aggravating relieving factors. Patient thinks she might be constipated and has taken milk of mag yesterday with a small bowel movement with partial relief but this morning pain got worse again. No associated nausea vomiting or diarrhea. No fever or chills reported. Timing/Duration: day(s) (2), intermittent, sudden, worse Activities at Onset: rest Quality: sharpness Abdominal Pain Onset Location: LUQ, LLQ, flank Pain Radiation: no radiation Severity of Pain-Max: moderate Severity of Pain-Current: severe Modifying Factors: Improves With: nothing Associated Symptoms: denies symptoms Previous symptoms: no prior history Allergies/Adverse Reactions: amoxicillin [From Amoxil] Allergy (Verified 04/09/19 22:01) Penicillins Allergy (Verified 04/09/19 22:01) Home Medications: Escitalopram Oxalate 10 mg [Lexapro 10 MG] 20 mg PO DAILY 03/20/18 [History] clonazePAM [Clonazepam] 0.5 mg PO BID 03/20/18 [History] Divalproex Sodium [Depakote] 500 mg PO BID 04/09/19 [History] Fluticasone Propionate [Flovent Diskus] 50 mcg IH BID 05/28/20 [History] Loratadine 10 mg PO DAILY 05/28/20 [History] cloZAPine [Clozapine] 200 mg PO BID 05/28/20 [History] Hx Tetanus, Diphtheria Vaccination/Date Given: No Hx Influenza Vaccination/Date Given: Yes Hx Pneumococcal Vaccination/Date Given: No Immunizations Up to Date: Yes Travel Risk - International Travel Have you traveled outside of the country in past 3 weeks: No - Coronavirus Screening Are you exhibiting any of the following symptoms?: No Close contact with a COVID-19 positive Pt in past 14-21 Days: No - Review of Systems Constitutional: No Symptoms Eyes: No Symptoms Ears, Nose, & Throat: No Symptoms Respiratory: No Symptoms Cardiac: No Symptoms Abdominal/Gastrointestinal: Abdominal Pain, Constipation Genitourinary Symptoms: No Symptoms Musculoskeletal: No Symptoms Skin: No Symptoms Neurological: No Symptoms Psychological: Anxiety, Depression, No Suicidal Ideations, No Homicidal Ideations Endocrine: No Symptoms Hematologic/Lymphatic: No Symptoms Immunological/Allergic: No Symptoms - Past Medical History Pertinent Past Medical History: Yes Neurological History: Epilepsy ENT History: No Pertinent History Cardiac History: No Pertinent History Respiratory History: No Pertinent History Endocrine Medical History: No Pertinent History Musculoskeletal History: Other GI Medical History: No Pertinent History History: No Pertinent History Psycho-Social History: Bipolar, Other Male Reproductive Disorders: No Pertinent History Other Medical History: tramatic brain injury, insomnia, ptsd, left pointer finger amputation. 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 - Social History Smoking Status: Former smoker Exposure to second hand smoke: Yes Drug Use: none Patient Lives Alone: No - Nursing Vital Signs Nursing Vital Signs: Initial Vital Signs Temperature 97.8 F 05/28/20 07:49 Pulse Rate 110 H 05/28/20 07:49 Respiratory Rate 20 05/28/20 07:49 Blood Pressure 151/102 05/28/20 07:49 O2 Sat by Pulse Oximetry 96 05/28/20 07:49 Pain Scale Pain Intensity 10 - Physical Exam General Appearance: no apparent distress, alert Eye Exam: eyes nml inspection Ears, Nose, Throat Exam: normal ENT inspection, pharynx normal Neck Exam: normal inspection, supple, full range of motion Respiratory Exam: normal breath sounds, lungs clear Cardiovascular Exam: normal heart sounds, tachycardia, capillary refill <2 sec Gastrointestinal/Abdomen Exam: soft, tenderness (Left abdomen), No distention Back Exam: normal inspection, normal range of motion Extremity Exam: normal inspection Neurologic Exam: alert, oriented x 3, cooperative Skin Exam: normal color SpO2 Interpretation: normal SpO2: 96 O2 Delivery: Room Air - Course Nursing assessment & vital signs reviewed: Yes Ordered Tests: Active Orders 24 hr Category Date Time Status IV Insertion STAT Care 05/28/20 08:12 Active NPO (ED) STAT Care 05/28/20 08:12 Active ABDOMEN AND PELVIS W CONTRAST [CT] Stat Exams 05/28/20 08:13 Completed AMYLASE Stat Lab 05/28/20 08:20 Completed CBC W DIFF Stat Lab 05/28/20 08:20 Completed CMP Stat Lab 05/28/20 08:20 Completed LIPASE Stat Lab 05/28/20 08:20 Completed Manual Differential NC Stat Lab 05/28/20 08:20 Completed UA W/RFX UR CULTURE Stat Lab 05/28/20 08:48 Completed Medication Summary Discontinued Medications Generic Name Dose Route Start Last Admin Trade Name Freq PRN Reason Stop Dose Admin Sodium Chloride 1,000 mls @ 999 mls/hr 05/28/20 08:12 05/28/20 08:34 Sodium Chloride 0.9% 1000 Ml IV 05/28/20 09:12 999 mls/hr .Q1H1M STA Administration Sodium Chloride Confirm 05/28/20 08:30 Sodium Chloride 0.9% 1000 Ml Administered 05/28/20 08:31 Dose 1,000 mls @ ud .ROUTE .STK-MED ONE Morphine Sulfate 4 mg 05/28/20 08:12 05/28/20 08:34 Morphine Sulfate 4 Mg Inj IV 05/28/20 08:13 4 mg STAT ONE Administration Morphine Sulfate Confirm 05/28/20 08:30 Morphine Sulfate 4 Mg Inj Administered 05/28/20 08:31 Dose 4 mg .ROUTE .STK-MED ONE Ondansetron HCl 4 mg 05/28/20 08:12 05/28/20 08:34 Zofran 4 Mg/2 Ml Vial IV 05/28/20 08:13 4 mg STAT ONE Administration Ondansetron HCl Confirm 05/28/20 08:29 Zofran 4 Mg/2 Ml Vial Administered 05/28/20 08:30 Dose 4 mg .ROUTE .STK-MED ONE Lab/Rad Data: Laboratory Result Diagrams 05/28/20 08:20 05/28/20 08:20 Laboratory Results 05/28/20 05/28/20 05/28/20 Range/Units 08:48 08:20 08:20 WBC 8.3 (4.0-10.5) K/mm3 RBC 4.93 (4.1-5.6) M/mm3 Hgb 14.5 (12.5-18.0) gm/dl Hct 42.8 (42-50) % MCV 86.8 (78-100) fl MCH 29.4 (26-32) pg MCHC 33.9 (32-36) g/dl RDW 13.8 (11.5-14.0) % Plt Count 155 (150-450) K/mm3 MPV 9.7 (7.5-11.0) fl Segmented Neutrophils 48 (36.-66.) % Lymphocytes (Manual) 38 (24-44) % Monocytes (Manual) 9 (0.0-12.0) % Eosinophils (Manual) 4 H (0.00-3.0) % Basophils (Manual) 1 (0.0-1.0) % Platelet Estimate NORMAL (NORMAL) RBC Morphology NORMAL Sodium 141 (137-145) mmol/L Potassium 4.1 (3.5-5.1) mmol/L Chloride 106 (98-107) mmol/L Carbon Dioxide 28 (22-30) mmol/L Anion Gap 11.3 (5-15) MEQ/L BUN 15 (9-20) mg/dL Creatinine 0.75 (0.66-1.25) mg/dL Estimated GFR > 60.0 ML/MIN Glucose 108 H (74-106) mg/dL Calcium 9.8 (8.4-10.2) mg/dL Total Bilirubin 0.40 (0.2-1.3) mg/dL AST 30 (17-59) U/L ALT 40 (0-50) U/L Alkaline Phosphatase 69 (38-126) U/L Serum Total Protein 7.5 (6.3-8.2) g/dL Albumin 4.2 (3.5-5.0) g/dL Amylase 42 (30-110) U/L Lipase 71 (23-300) U/L Urine Color YELLOW (YELLOW) Urine Appearance CLEAR (CLEAR) Urine pH 7.0 (5-6) Ur Specific [place] 1.012 (1.005-1.025) Urine Protein NEGATIVE (Negative) Urine Ketones NEGATIVE (NEGATIVE) Urine Blood NEGATIVE (0-5) Abimael/ul Urine Nitrite NEGATIVE (NEGATIVE) Urine Bilirubin NEGATIVE (NEGATIVE) Urine Urobilinogen 2 (0-1) mg/dL Ur Leukocyte Esterase NEGATIVE (NEGATIVE) Urine WBC (Auto) NONE (0-5) /HPF Urine RBC (Auto) NONE (0-2) /HPF U Epithel Cells (Auto) NONE (FEW) /HPF Urine Bacteria (Auto) NONE (NEGATIVE) /HPF Urine Culture Reflexed NO (NO) Urine Glucose NEGATIVE (NEGATIVE) mg/dL - Progress Progress: improved, pain not gone completely, re-examined Progress Note: 05/28/20 10:01 \\34 years old is evaluated for left-sided abdominal pain. He is given IV fluid and pain medication, on reevaluation patient is feeling much better. Acute abdomen work-up is obtained with normal white count. Grossly unremarkable chemistries. I have obtained CT with contrast which showed diffuse fecal stasis but no other acute findings. Recommended taking enema and regular MiraLAX/stool softener, outpatient follow-up. Discussed signs symptoms of worsening needing return to ER which he seems understanding. Counseled pt/family regarding: lab results, diagnosis, need for follow-up, rad results - Departure Departure Disposition: Home Clinical Impression: Left sided abdominal pain Constipation Qualifiers: Constipation type: unspecified constipation type Qualified Code(s): K59.00 - Constipation, unspecified Condition: Stable Critical Care Time: No Referrals: JAIRON LYNN [Primary Care Provider] - Follow Up with PCP/3 days Instructions: Acute Abdomen (Belly Pain), Adult (DC), Constipation, Adult (DC) Additional Instructions: Drink plenty of fluids. Take Tylenol as needed. Take enemas as needed. Take MiraLAX and stool softener regularly. Follow-up with primary care for reevaluation. Return to ER for any worsening. Prescriptions: Docusate Sodium 100 mg [Colace 100 MG] 100 mg PO BID 30 Days #60 cap Sodium Phosphate,[place]-Dibasic [Fleet Enema] 133 ml RC DAILY PRN PRN 3 Days #3 enema PRN Reason: Constipation Polyethylene Glycol 3350 17 gm [Miralax Powder 17GM PACKET] 17 gm PO DAILY #30 packet
[2020-05-28] MEDS ORDERED: Zofran 4 MG/2 ML VIAL ONE (08:29)
[2020-05-28] MEDS ORDERED: Sodium Chloride 0.9% 1000 ML 1,000 ML ONE (08:30)
[2020-05-28] MEDS ORDERED: MORPHINE SULFATE 4 MG INJ ONE (08:30)
[2020-05-28] MEDS: MORPHINE SULFATE 4 MG INJ IV ONE (08:34)
[2020-05-28] MEDS: Zofran 4 MG/2 ML VIAL IV ONE (08:34)
[2020-05-28] MEDS: Sodium Chloride 0.9% 1000 ML 1,000 ML IV STA (08:34)
[2020-05-28 08:37] LABS: Hematocrit 42.8 % (42-50); Hemoglobin 14.5 gm/dl (12.5-18.0); Mean Cell Volume 86.8 fl (78-100); Mean Corpuscular Hemoglobin 29.4 pg (26-32); Mean Corpuscular Hgb Concent. 33.9 g/dl (32-36); Mean Platelet Volume 9.7 fl (7.5-11.0); Platelet Count 155 K/mm3 (150-450); Red Blood Count 4.93 M/mm3 (4.1-5.6); Red Cell Distribution Width 13.8 % (11.5-14.0); White Blood Count 8.3 K/mm3 (4.0-10.5)
[2020-05-28 08:48] VITALS: BP 148/100
[2020-05-28 08:54] LABS: ALBUMIN 4.2 g/dL (3.5-5.0); ALKALINE PHOSPHATASE 69 U/L (38-126); AMYLASE 42 U/L (30-110); ANION GAP 11.3 MEQ/L (5-15); BLOOD UREA NITROGEN 15 mg/dL (9-20); CHLORIDE 106 mmol/L (98-107); Calcium 9.8 mg/dL (8.4-10.2); Carbon Dioxide 28 mmol/L (22-30); Creatinine 1 0.75 mg/dL (0.66-1.25); Glucose 108 mg/dL (74-106); LIPASE 71 U/L (23-300); Potassium 4.1 mmol/L (3.5-5.1); SGOT/AST 30 U/L (17-59); SGPT/ALT 40 U/L (0-50); SODIUM 141 mmol/L (137-145); Total Protein 7.5 g/dL (6.3-8.2)
[2020-05-28 08:59] LABS: Appearance CLEAR (CLEAR); Bilirubin NEGATIVE (NEGATIVE); Blood NEGATIVE Ery/ul (0-5); Glucose NEGATIVE (NEGATIVE); Ketones NEGATIVE (NEGATIVE); Leukocyte Esterase NEGATIVE (NEGATIVE); Nitrite NEGATIVE (NEGATIVE); Protein,Urine Dip NEGATIVE (Negative); Specific Gravity 1.012 (1.005-1.025); Urobilinogen 2 mg/dL (0-1)
--- NOTE | 2020-05-28 09:17 | XRAY ---
Indication: Left sided pain and nausea. Multiple contiguous axial images obtained through the abdomen and pelvis using 80 cc Isovue 370 contrast only. Comparison: None Lung bases demonstrates bibasilar dependent atelectasis. Heart is not enlarged. Noncontrasted stomach and bowel loops appear nonobstructed. Previous appendectomy. There is moderate diffuse scattered colonic fecal debris throughout with mild rectal impaction. No free fluid/air. Spleen is enlarged measuring 15.2 cm in greatest axial dimension. Remaining liver, gallbladder, pancreas, spleen, adrenal glands, kidneys, ureters, bladder, and aorta appear unremarkable. No pathologic retroperitoneal lymphadenopathy. Osseous structures intact. Impression: 1. Diffuse fecal stasis with mild rectal impaction. 2. Incidental splenomegaly. 3. Remaining CT abdomen/pelvis with contrast exam is negative.
[2020-05-28 09:29] LABS: Basophil 1 % (0.0-1.0); Eosinophil 4 % (0.00-3.0); Lymphocytes 38 % (24-44); Monocyte 9 % (0.0-12.0); Neutrophils 48 % (36.-66.); Total Cells Counted 100
[2020-05-28 09:36] LABS: Platelet Estimate NORMAL (NORMAL)
[2020-05-28 10:18] VITALS: PULSE 98; O2SAT 98
== END 2020-05-28 10:35 | disposition home or self-care (01) ==
LOC: ED 07:41
DX: R10.9 Unspecified abdominal pain (principal); F31.9 Bipolar disorder, unspecified; F43.10 Post-traumatic stress disorder, unspecified; R10.32 Left lower quadrant pain; R10.12 Left upper quadrant pain; K59.00 Constipation, unspecified; Z79.899 Other long term (current) drug therapy; G40.909 Epilepsy, unspecified, not intractable, without status epilepticus
CPT/HCPCS: 36000; 36415; 74177; 80053; 81001; 82150; 83690; 85025; 96360; 96374; 96375; 99284; J2270; J2405